=== PATIENT | male | born 1940 | race Caucasian/White ===

== ENCOUNTER 2021-07-12 05:12 | Emergency (ER) | payer MEDICARE, BC ==
[~2021-07-12] VITALS: Ht 180.3 cm; Wt 141.9 kg
[~2021-07-12 05:12] MED LIST: ACET325T9 PO; AMLO-187 PO; BIMA2.5D EACHEYE; CHOL200074 PO; FENO145T3 PO; HYDR-2155 PO; HYDR-2867 PO; INSU100V8 SQ; OMEP20CA16 PO; PIOG30TA41 PO; TAMS0.4C97 PO; symbicort INH
--- NOTE | 2021-07-12 05:16 | PHYS DOC ---
Past History Past Medical History: Arthritis, Sciatica (ROB MCGARRY MD) General Adult HPI: HPI: ".. I got this chronic back pain... it just been getting worse.. Dr. Yee says it is a pinched nerve.... and I want to get something done... until I can get my MRI.. I ve been going to the pain center.. and got some injections.. and they burned a nerve.. I am about to the point .. I want to get surgery.. which I ve been putting off.. I ve been follow with pain center,, and Mehreen Jacobs.. they are to call me when they get the MRI scheduled.. I just need some relief tonight..." Patient is a 80 year old male who presents with above hx and complaints lumbosacral and right sided sciatica exacerbation tonight. Patient has longstanding history of chronic back pain and sciatica. Patient denies any recent falls. Patient denies any recent travel or specific ill contacts. Patient normally follows with Dr. Yee and pain center for control of his back pain. Patient has been taking his hydrocodone 2 tablets every 6 hours. Patient relates tonight the pain meds have not relieved his chronic back pain. Patient denies any fever or chills. Patient has been able to pass urine and stool. Pain appears to follow sciatic root on the right. Patient currently rates pain as 15 out of 10. (ROB MCGARRY MD) Review of Systems: Review of Systems: Constitutional: Denies fever or chills Eyes: Denies change in visual acuity HENT: Denies nasal congestion or sore throat Respiratory: Denies cough or shortness of breath Cardiovascular: Denies chest pain or edema GI: Denies abdominal pain, nausea, vomiting, bloody stools or diarrhea : Denies dysuria Musculoskeletal: Complains of lumbar sacral and sciatic pain on the right Integument: Denies rash Neurologic: Denies headache, focal weakness or sensory changes Endocrine: Denies polyuria or polydipsia Lymphatic: Denies swollen glands Psychiatric: Denies depression or anxiety (ROB MCGARRY MD) Family History: Family History: Noncontributory to presentation (ROB MCGARRY MD) Current Medications: Current Meds: See nursing for home meds (ROB MCGARRY MD) Allergies: Allergies: Allergies Coded Allergies Type Severity Reaction Last Updated Verified No Known Drug Allergies 11/13/15 No (ROB MCGARRY MD) Physical Exam: PE: Constitutional: Moderate acute distress, non-toxic appearance. [] HENT: Normocephalic, atraumatic, bilateral external ears normal, oropharynx moist, no oral exudates, nose normal. [] Eyes: PERRLA, EOMI, conjunctiva normal, no discharge. [] Neck: Normal range of motion, no tenderness, supple, no stridor. [] Cardiovascular:Heart rate regular rhythm, no murmur []. PMI to the left Lungs & Thorax: Bilateral breath sounds clear to auscultation [] Abdomen: Bowel sounds normal, soft, no tenderness, no masses, no pulsatile masses. Obese. Skin: Warm, dry, no erythema, no rash. Venous stasis changes Back: Right sciatic nerve tenderness, no CVA tenderness. [] Extremities: No tenderness, no cyanosis, no clubbing, ROM intact, lateral ankle edema. [] Neurologic: Alert and oriented X 3, normal motor function, normal sensory function, no focal deficits noted. [] Psychologic: Affect anxious, judgement normal, mood normal. [] (ROB MCGARRY MD) EKG: EKG: [] (ROB MCGARRY MD) Radiology/Procedures: Radiology/Procedures: [][place] [address] IMAGING REPORT Signed PATIENT: JANELLE MARSHALLCOUNT: [id number] : 1940 LOCATION: ER AGE: 80 SEX: M EXAM STATUS: REG ER ORD. PHYSICIAN: ROB MCGARRY MD REASON: Rt. hip pain PROCEDURE: CT PELVIS WO CONTRAST EXAMINATION: CT LUMBAR SPINE WO, CT PELVIS WO CLINICAL HISTORY: Low back and right hip pain TECHNIQUE: CT of the lumbar spine without IV contrast. Spiral, high resolution axial images were obtained from the thoracolumbar junction to the lumbosacral junction with sagittal and coronal planar reconstructions. CT of the pelvis spine without IV contrast. Spiral, high resolution axial images were obtained through the bony pelvis with sagittal and coronal planar reconstructions. CT Dose Reduction Employed: One or more of the following individualized dose reduction techniques were utilized for this examination: 1. Automated exposure control 2. Adjustment of the mA and/or kV according to patient size 3. Use of iterative reconstruction technique. COMPARISON: None FINDINGS: L-SPINE: Alignment: Normal anatomic alignment. Osseous Structures: No evidence of acute fracture. Mild compression deformity in the L3 superior endplate with remote fracture fragment versus fractured osteophyte along the anterior superior vertebral body. Minimal L3-4 anterolisthesis, likely degenerative. Degenerative Changes: Multilevel degenerative disc disease, marked at L4-5 and L5-S1. Neural foraminal narrowing in the lower lumbar spine, greatest at L5-S1. 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 Multilevel facet arthropathy. Paraspinal Soft Tissues: Vascular calcifications. 1.4 cm right renal lesion, incompletely evaluated but may represent a cyst. PELVIS: Minimal degenerative changes bilateral hips. Pubic symphysis and SI joints maintained. No acute fracture. Fatty replacement in the left greater than right gluteal musculature, possibly related to chronic tendinosis/remote tendon tearing. Vascular calcifications. Patient came bilateral inguinal hernias, greater on the left. IMPRESSION: L-SPINE: No evidence of acute osseous abnormality involving the thoracic spine. Multilevel degenerative findings as described. PELVIS: No evidence of acute osseous abnormality involving the pelvis. Electronically signed by: Magdiel Carrillo DO (07/12/2021 6:19 AM) [facility] DICTATED AND SIGNED BY: MAGDIEL CARRILLO DO DATE: 07/12/21 0609 CC: ELIZABETH BUTLER MD; ROB MCGARRY MD; BLAINE YEE MD ~MTH0 0 (ROB MCGARRY MD) Radiology/Procedures: [address] [address] IMAGING REPORT Signed PATIENT: JANELLE MARSHALL: [id number] : 1940 LOCATION: ER AGE: 80 SEX: M EXAM STATUS: REG ER ORD. PHYSICIAN: ROB MCGARRY MD REASON: Rt. hip pain PROCEDURE: CT PELVIS WO CONTRAST EXAMINATION: CT LUMBAR SPINE WO, CT PELVIS WO CLINICAL HISTORY: Low back and right hip pain TECHNIQUE: CT of the lumbar spine without IV contrast. Spiral, high resolution axial images were obtained from the thoracolumbar junction to the lumbosacral junction with sagittal and coronal planar reconstructions. CT of the pelvis spine without IV contrast. Spiral, high resolution axial images were obtained through the bony pelvis with sagittal and coronal planar reconstructions. CT Dose Reduction Employed: One or more of the following individualized dose reduction techniques were utilized for this examination: 1. Automated exposure control 2. Adjustment of the mA and/or kV according to patient size 3. Use of iterative reconstruction technique. COMPARISON: None FINDINGS: L-SPINE: Alignment: Normal anatomic alignment. Osseous Structures: No evidence of acute fracture. Mild compression deformity in the L3 superior endplate with remote fracture fragment versus fractured osteophyte along the anterior superior vertebral body. Minimal L3-4 anterolisthesis, likely degenerative. Degenerative Changes: Multilevel degenerative disc disease, marked at L4-5 and L5-S1. Neural foraminal narrowing in the lower lumbar spine, greatest at L5-S1. 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 Multilevel facet arthropathy. Paraspinal Soft Tissues: Vascular calcifications. 1.4 cm right renal lesion, incompletely evaluated but may represent a cyst. PELVIS: Minimal degenerative changes bilateral hips. Pubic symphysis and SI joints maintained. No acute fracture. Fatty replacement in the left greater than right gluteal musculature, possibly related to chronic tendinosis/remote tendon tearing. Vascular calcifications. Patient came bilateral inguinal hernias, greater on the left. IMPRESSION: L-SPINE: No evidence of acute osseous abnormality involving the thoracic spine. Multilevel degenerative findings as described. PELVIS: No evidence of acute osseous abnormality involving the pelvis. Electronically signed by: Magdiel Carrillo DO (07/12/2021 6:19 AM) [facility] DICTATED AND SIGNED BY: MAGDIEL CARRILLO DO DATE: 07/12/21608 CC: ELIZABETH BUTLER MD; ROB MCGARRY MD; BLAINE YEE MD ~MTH0 0 (ELIZABETH BUTLER MD) Heart Score: C/O Chest Pain: N/A Risk Factors: Risk Factors: DM, Current or recent (<one month) smoker, HTN, HLP, family history of CAD, obesity. Risk Scores: Score 0 - 3: 2.5% MACE over next 6 weeks - Discharge Home Score 4 - 6: 20.3% MACE over next 6 weeks - Admit for Clinical Observation Score 7 - 10: 72.7% MACE over next 6 weeks - Early Invasive Strategies (ROB MCGARRY MD) C/O Chest Pain: No (ELIZABETH BUTLER MD) Course & Med Decision Making: Course & Med Decision Making Pertinent Labs and Imaging studies reviewed. (See chart for details). Patient take meds as previous directed. Patient follow-up with Dr. Yee. Patient keep follow-up for his MRI lumbosacral area. Patient continue to take his hydrocodone for marked pain. Patient return if any concerns. Pt. endorsed to Dr. Butler at shift change she will make final disposition on pt. Impression: 1. Rt. Sciatic pain exacerbation 2. Rt. Hip pain 3. Multilevel DJDof lumbar spine 4. UTI-urine leukocytosis [] (ROB MCGARRY MD) Course & Med Decision Making Accepted patient care at shift change pending CT imaging. Patient has prescription for hydrocodone's at home. He is requesting epidural, discussed that that is not an emergency department procedure and we are trying none. Discussed following up with neurosurgery. Patient has been unable to care for himself at home and has been having to call his children to help him get up. 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 Steele placed because patient needs to urinate but is having too much pain to try to get up. Patient states he has no problem initiating urination but the pain is due to him moving and trying to set up. Patient remains neuro intact lower extremities no numbness or saddle anesthesia. Discussed patient presentation with neurosurgery, will see patient at [facility] for MRI, PT and pain management. Dr. Rivas accepts patient for admission. Urine shows white blood cells, bacteria, and leuk esterase. We will treat with ceftriaxone prior to transfer. (ELIZABETH BUTLER MD) Dragon Disclaimer: Dragon Disclaimer: This electronic medical record was generated, in whole or in part, using a voice recognition dictation system. (ROB MCGARRY MD) Departure Departure: Impression: Primary Impression: Back pain Referrals: BLAINE YEE MD (PCP) [place] Disclaimer This chart was dictated in whole or in part using Voice Recognition software in a busy, high-work load, and often noisy Emergency Department environment. It may contain unintended and wholly unrecognized errors or omissions. (ROB MCGARRY MD) ROB MCGARRY MD Jul 12, 2021 05:16 ELIAZBETH BUTLER MD Jul 12, 2021 06:42
[2021-07-12] MEDS ORDERED: ALLO100T PO (05:42)
[2021-07-12] MEDS ORDERED: HYDR-2869 PO (05:42)
[2021-07-12] MEDS ORDERED: INSU100I32 SQ (05:42)
[2021-07-12] MEDS ORDERED: POTA10TA17 PO (05:42)
[2021-07-12] MEDS ORDERED: KETOROLAC 30 MG/ML VIAL. IM ONE (06:00)
[2021-07-12] MEDS ORDERED: MORPHINE SULFATE 10 MG/ML SYRINGE. SQ ONE (06:00)
[2021-07-12] MEDS ORDERED: methylPREDNISolone ACETATE 40 MG/ML VIAL. IM ONE (06:00)
[2021-07-12] MEDS ORDERED: ORPHENADRINE CITRATE 60 MG/2 ML VIAL. IM ONE (06:00)
--- NOTE | 2021-07-12 06:21 | RAD ---
EXAMINATION: CT LUMBAR SPINE WO, CT PELVIS WO CLINICAL HISTORY: Low back and right hip pain TECHNIQUE: CT of the lumbar spine without IV contrast. Spiral, high resolution axial images were obtained from t he thoracolumbar junction to the lumbosacral junction with sagittal and coronal planar reconstruction s. CT of the pelvis spine without IV contrast. Spiral, high resolution axial images were obtained throug h the bony pelvis with sagittal and coronal planar reconstructions. CT Dose Reduction Employed: One or more of the following individualized dose reduction techniques wer e utilized for this examination: 1. Automated exposure control 2. Adjustment of the mA and/or kV ac cording to patient size 3. Use of iterative reconstruction technique. COMPARISON: None FINDINGS: L-SPINE: Alignment: Normal anatomic alignment. Osseous Structures: No evidence of acute fracture. Mild compression deformity in the L3 superior endp late with remote fracture fragment versus fractured osteophyte along the anterior superior vertebral body. Minimal L3-4 anterolisthesis, likely degenerative. Degenerative Changes: Multilevel degenerative disc disease, marked at L4-5 and L5-S1. Neural foramina l narrowing in the lower lumbar spine, greatest at L5-S1. 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 Multilevel facet arthropathy. Paraspinal Soft Tissues: Vascular calcifications. 1.4 cm right renal lesion, incompletely evaluated b ut may represent a cyst. PELVIS: Minimal degenerative changes bilateral hips. Pubic symphysis and SI joints maintained. No acute fract ure. Fatty replacement in the left greater than right gluteal musculature, possibly related to chronic ten dinosis/remote tendon tearing. Vascular calcifications. Patient came bilateral inguinal hernias, grea ter on the left. IMPRESSION: L-SPINE: No evidence of acute osseous abnormality involving the thoracic spine. Multilevel degenerative findings as described. PELVIS: No evidence of acute osseous abnormality involving the pelvis. Electronically signed by: Magdiel Hutchinson DO (07/12/2021 6:19 AM) [facility]
[2021-07-12 07:41] LABS: BASO % 1 % (0-3); EOS % 1 % (0-3); HEMATOCRIT 42.4 % (39.0-53.0); LYMPH # 0.9 x10^3/uL (1.0-4.8); LYMPH % 15 % (24-48); MEAN CORPUSCULAR HEMOGLOBIN 31 pg (25-35); MEAN CORPUSCULAR HGB CONC 33 g/dL (31-37); MEAN CORPUSCULAR VOLUME 94 fL (79-100); MONO # 0.6 x10^3/uL (0.0-1.1); MONO % 9 % (0-9); NEUT # 4.5 x10^3uL (1.8-7.7); NEUT % 75 % (31-73); PLATELET COUNT 164 x10^3/uL (140-400); RED CELL DISTRIBUTION WIDTH 16.1 % (11.5-14.5)
[2021-07-12 07:50] LABS: CALCIUM 9.5 mg/dL (8.5-10.1); CREATININE 1.1 mg/dL (0.7-1.3); GFR 64.4
[2021-07-12 07:50] LABS: BILIRUBIN,URINE NEG (NEG); CLARITY,URINE HAZY; COLOR,URINE YELLOW; GLUCOSE,URINE NEG (NEG); NITRITE,URINE NEG (NEG); WBC,URINE 20-40 /HPF (0-4)
[2021-07-12 07:51] LABS: BACTERIA,URINE MANY /HPF (0-FEW); SQUAMOUS EPITHELIAL CELL,UR OCC /LPF
[2021-07-12 07:56] LABS: ALBUMIN 3.2 g/dL (3.4-5.0); ALBUMIN/GLOBULIN RATIO 0.9 (1.0-1.7); TOTAL BILIRUBIN 0.9 mg/dL (0.2-1.0); TOTAL PROTEIN 6.9 g/dL (6.4-8.2)
[2021-07-12] MEDS ORDERED: MORPHINE SULFATE 4 MG/ML DISP.SYRIN. IV ONE (10:15)
[2021-07-12 10:28] VITALS: BP 121/62
[2021-07-12] MEDS ORDERED: IV NORMAL SALINE 50ML 50 ML ONE (10:33)
[2021-07-12] MEDS ORDERED: cefTRIAXone SODIUM 1 GM VIAL ONE (10:33)
== END 2021-07-12 11:24 | disposition short-term general hospital (02) ==
LOC: ER 05:12
DX: M54.41 Lumbago with sciatica, right side (principal); M25.551 Pain in right hip; N39.0 Urinary tract infection, site not specified
CPT/HCPCS: 72131; 72192; 80053; 81001; 85025; 87086; 87426; 96365; 96372; 96375; 99285; C9803; J0696; J1030; J1885; J2270; J2360; U0003